=== PATIENT | male | born 1985 | race American Indian/Alaskan Native ===

== ENCOUNTER 2019-05-04 16:32 | Emergency (ER) | payer MEDICAID ==
[~2019-05-04] VITALS: Ht 180.3 cm; Wt 99.8 kg
[~2019-05-04 16:32] MED LIST: ACET500 PO; CEPH500 PO; HYDACE5 PO; SULTRIDS PO
== END 2019-05-04 19:35 | disposition home or self-care (01) ==
LOC: ER 16:32
DX: S01.01XA Laceration without foreign body of scalp, initial encounter (principal); Z79.899 Other long term (current) drug therapy; Y00.XXXA Assault by blunt object, initial encounter
CPT/HCPCS: 12004; 70450; 90471; 90714; 99283-25

== ENCOUNTER 2019-05-17 06:19 | Emergency (ER) | payer MEDICAID ==
[~2019-05-17] VITALS: Ht 180.3 cm; Wt 53.1 kg
== END 2019-05-17 06:54 | disposition home or self-care (01) ==
LOC: ER 06:19
DX: S01.01XD Laceration without foreign body of scalp, subsequent encounter (principal); Z79.899 Other long term (current) drug therapy; W22.8XXD Striking against or struck by other objects, subsequent encounter